=== PATIENT | male | born 1985 | race Caucasian/White ===

== ENCOUNTER 2023-06-20 17:18 | Emergency (ER) | payer BC, SELFPAY ==
[2023-06-20 17:22] VITALS: BP 132/86; PULSE 114; RESP 22; TEMP 38.5; O2SAT 95; BMI 50.8
--- NOTE | 2023-06-20 17:32 | ED_ITS ---
HPI - Dizziness General Chief Complaint: Dizziness Stated Complaint: lightheaded Time Seen by Provider: 06/20/23 17:28 Source: patient Mode of arrival: walk-in Limitations: no limitations History of Present Illness HPI Narrative: 37-year-old male presents to the emergency department for dizziness and abdominal pain. He's been feeling this way intermittently for the past few days but now he has pain in his right lower abdomen. He's been nauseous and has not had vomiting or diarrhea or constipation. No fever. Related Data Allergies Allergy/AdvReac Type Severity Reaction Status Date / Time No Known Drug Allergies Allergy Verified 06/20/23 17:25 Review of Systems ROS Narrative A ten point review of systems is negative except as noted above. PFSH PFSH Social History Smoking status: Never smoker Exam Narrative Exam Narrative: Nurses note and vital signs reviewed and patient is not hypoxic. General: The patient appears uncomfortable Skin: Warm, dry, no pallor noted. There is no rash noted. Head: Normocephalic, atraumatic Eye: Normal conjunctiva, no drainage Ears, Nose, Mouth, and Throat: oral mucosa is moist. Nares patent. Cardiovascular: Regular Rate and Rhythm Respiratory: Patient is in no distress, no accessory muscle use, lungs are clear to auscultation, no wheezing, rales or rhonchi Back: non-tender GI: . We obese. He seems to have some tenderness in the lower abdomen Musculoskeletal: The patient has no evidence of calf tenderness, no pitting edema, symmetrical pulses noted bilaterally Neurological: A&O, normal speech Psychiatric: Cooperative Constitutional Vital Signs, click to edit/add: Last Vital Signs Temp 101.3 F H 06/20/23 17:22 Pulse 114 H 06/20/23 17:22 Resp 22 06/20/23 17:22 BP 132/86 06/20/23 17:22 Pulse Ox 95 06/20/23 17:22 O2 Del Method Room Air 06/20/23 17:22 Course Vital Signs Vital signs: Vital Signs Temperature 101.3 F H 06/20/23 17:22 Pulse Rate 114 H 06/20/23 17:22 Respiratory Rate 22 06/20/23 17:22 Blood Pressure 132/86 06/20/23 17:22 Pulse Oximetry 95 06/20/23 17:22 Oxygen Delivery Method Room Air 06/20/23 17:22 Temperature 101.3 F H 06/20/23 17:22 Pulse Rate 114 H 06/20/23 17:22 Respiratory Rate 22 06/20/23 17:22 Blood Pressure 132/86 06/20/23 17:22 Pulse Oximetry 95 06/20/23 17:22 Oxygen Delivery Method Room Air 06/20/23 17:22 MDM - Dizziness MDM Narrative Medical decision making narrative: tests are ordered. Urinalysis and CAT scan are pending and the patient is signed out to Dr. Heath. Lab Data Labs: Lab Results 06/20/23 Range/Units 17:30 WBC 7.1 (4.0-11.0) 10^3/uL RBC 5.47 (4.70-6.10) 10^6/uL Hgb 15.2 (14.0-18.0) g/dL Hct 46.4 (42.0-54.0) % MCV 84.8 (80.0-94.0) fL MCH 27.8 (25.9-34.0) pg MCHC 32.8 (29.9-35.2) g/dL RDW 14.6 (11.0-15.0) % Plt Count 153 (150-450) 10^3/uL MPV 9.8 (9.5-13.5) fL Neut % (Auto) 47.9 (43.0-75.0) % Lymph % (Auto) 43.2 (20.5-60.0) % [place] % (Auto) 7.9 (1.7-12.0) % Eos % (Auto) 0.3 L (0.9-7.0) % Baso % (Auto) 0.1 L (0.2-2.0) % Neut # (Auto) 3.4 (1.4-6.5) 10^3/uL Lymph # (Auto) 3.1 (1.2-3.8) 10^3/uL [place] # (Auto) 0.6 (0.3-0.8) 10^3/uL Eos # (Auto) 0.0 (0.0-0.7) 10^3/uL Baso # (Auto) 0.0 (0.0-0.1) 10^3/uL Abs Immat Gran (auto) 0.04 H (0.00-0.03) 10^3/uL Imm/Tot Granulo (auto) 0.6 H (0.0-0.5) % Sodium 136 (136-145) mmol/L Potassium 4.1 (3.5-5.1) mmol/L Chloride 99 (98-107) mmol/L Carbon Dioxide 27.5 (21.0-32.0) mmol/L Anion Gap 13.6 BUN 10.0 (7.0-18.0) mg/dL Creatinine 0.99 (0.70-1.30) mg/dL Est GFR ( Amer) >60 (>=60) Est GFR (Non-Af Amer) >60 (>=60) BUN/Creatinine Ratio 10.1 Glucose 112 H (74-106) mg/dL Calcium 9.1 (8.5-10.1) mg/dL Discharge Plan Discharge Patient Disposition: Still a Patient
[2023-06-20 17:37] LABS: Basophils Percent Auto 0.1 % (0.2-2.0); Eosinophils Percent Auto 0.3 % (0.9-7.0); Hematocrit 46.4 % (42.0-54.0); Hemoglobin 15.2 g/dL (14.0-18.0); Immature Granulocytes Abs Auto 0.04 10^3/uL (0.00-0.03); Immature Granulocytes Pct Auto 0.6 % (0.0-0.5); Lymphocytes Absolute Auto 3.1 10^3/uL (1.2-3.8); Lymphocytes Percent Auto 43.2 % (20.5-60.0); Mean Corpuscular HGB Conc 32.8 g/dL (29.9-35.2); Mean Corpuscular Hemoglobin 27.8 pg (25.9-34.0); Mean Corpuscular Volume 84.8 fL (80.0-94.0); Mean Platelet Volume 9.8 fL (9.5-13.5); Monocytes Absolute Auto 0.6 10^3/uL (0.3-0.8); Monocytes Percent Auto 7.9 % (1.7-12.0); Neutrophils Absolute Auto 3.4 10^3/uL (1.4-6.5); Neutrophils Percent Auto 47.9 % (43.0-75.0); Platelet Count 153 10^3/uL (150-450); Red Blood Count 5.47 10^6/uL (4.70-6.10); Red Cell Distribution Width 14.6 % (11.0-15.0); White Blood Count 7.1 10^3/uL (4.0-11.0)
[2023-06-20 17:50] LABS: Anion Gap 13.6; BUN Creatinine Ratio 10.1; Calcium 9.1 mg/dL (8.5-10.1); Carbon Dioxide 27.5 mmol/L (21.0-32.0); Chloride 99 mmol/L (98-107); Estimated GFR (African America >60 (>=60); Estimated GFR (Non-African Ame >60 (>=60); Glucose 112 mg/dL (74-106); Potassium 4.1 mmol/L (3.5-5.1); Sodium 136 mmol/L (136-145)
[2023-06-20] MEDS: 0.9 % SODIUM CHLORIDE 1,000 ML 1000 ML IV (17:50)
[2023-06-20] MEDS: ONDANSETRON PF 4 MG/2 ML VIAL IV (17:50)
--- NOTE | 2023-06-20 18:18 | CT_ITS ---
[address] [address] Patient Name: JORDAN YEH MRN: [id number] date: 1985 Sex: M Assigned Patient Location: ER Current Patient Location: Accession/Order Number: [id number] Exam Date: 06/20/2023 18:35 Report Date: 06/20/2023 19:41 At the request of: MILADIS HARVEY Procedure: CT abdomen pelvis w con EXAM: CT abdomen pelvis w con REASON FOR EXAM: Male, 37 years, low abd pain. TECHNIQUE: Computed tomography of the abdomen and pelvis is performed in the axial projection from the lung bases to the pubic symphysis. Sagittal and coronal reconstructed images are performed. Dose reduction techniques were achieved by using automated exposure control and/or adjustment of mA and/or KVP according to patient size and/or use of iterative reconstruction technique. A total of 98 mL Omnipaque 300 IV contrast was given. Study was performed without oral contrast. COMPARISON: None. FINDINGS: Lung bases: The lung bases are clear. There is no pleural effusion. The visualized portions of the heart are unremarkable. Liver: There is diffuse decreased attenuation throughout the liver consistent with steatosis. The liver is enlarged. Gallbladder: The gallbladder contents appear slightly heterogeneous. Question noncalcified gallstones. The gallbladder wall is not thickened. Spleen: The spleen is enlarged, measuring 20 cm from anterior to posterior. Pancreas: The pancreas is normal. Adrenal glands: The adrenal glands are normal bilaterally. Right kidney: The kidney is normal in size. There is no renal calculus or hydronephrosis. Left kidney: The kidney is normal in size. There is no renal calculus or hydronephrosis. Stomach: The stomach is normal. Small bowel: The small bowel is normal. Large bowel: The colon is normal. Appendix: The appendix is visualized, and is normal. Aorta: The aorta is normal. IVC: The IVC is normal. Retroperitoneum: Normal retroperitoneum. Bladder: The bladder is nearly empty at the time of scanning. Pelvic organs: Normal prostate gland. Abdominal wall: Normal abdominal wall. Osseous structures: Degenerative changes are seen in the visualized spine. CT/CT abdomen pelvis w con IMPRESSION: Hepatosplenomegaly. Hepatic steatosis. Subtle heterogeneity of the gallbladder contents, question noncalcified gallstones. This can be further characterized by right upper quadrant ultrasound, as clinically indicated. No bowel obstruction or acute renal pathology. Electronically authenticated by: LA NENA MATTHEWS Date: 06/20/2023 19:41
[2023-06-20 18:57] LABS: Bilirubin Urine NEGATIVE (NEGATIVE); Blood Urine TRACE-I (NEGATIVE); Clarity Urine CLEAR (CLEAR); Color Urine YELLOW (YELLOW); Glucose Urine UA NEGATIVE (NEGATIVE); Ketones Urine NEGATIVE (NEGATIVE); Leukocyte Esterase Urine NEGATIVE (NEGATIVE); Nitrite Urine NEGATIVE (NEGATIVE); Protein Urine >=300 mg/dL (NEG/TRACE); Specific Gravity Urine 1.025 (1.005-1.025); Urobilinogen Urine 0.2 EU/dL (0.2-1.0)
[2023-06-20 19:08] LABS: Bacteria Urine NONE SEEN #/HPF (NONE SEEN); Cast Seen? NONE SEEN #/LPF (NONE SEEN); Crystals Seen? None Seen #/HPF (None Seen); Mucus Urine NONE SEEN (NONE SEEN); Squamous Epithelial Cell Urine MODERATE #/LPF (NONE/RARE); WBC Urine 0-2 #/HPF (NONE SEEN)
[2023-06-20 19:30] VITALS: BP 112/71; PULSE 94; TEMP 37.9; O2SAT 95
[2023-06-20 20:32] VITALS: BP 131/77; PULSE 95; TEMP 37.6; O2SAT 95
== END 2023-06-20 20:34 | disposition home or self-care (01) ==
PROVIDERS: Emergency Medicine; Emergency Provider Internal Medicine
DX: R10.9 Unspecified abdominal pain (principal); K80.20 Calculus of gallbladder without cholecystitis without obstruction; R42 Dizziness and giddiness
CPT/HCPCS: 36415; 74177; 80048; 81001; 85025; 96361; 96374; 99285; Q9967

== ENCOUNTER 2025-01-06 21:13 | Emergency (ER) | payer BC, SELFPAY ==
[2025-01-06 21:18] VITALS: BP 134/91; PULSE 92; TEMP 36.8; O2SAT 96; BMI 47.5
--- OUTSIDE RECORDS SUMMARY | 2025-01-06 21:21 | XMS_ITS | CCD ---
Author Organization [facility] Inform ion Partnership [facility] Care Team Providers Care Surveillance Dual Rate Officer Name Role Phone ELEANOR ESTRADA Admitting ELEANOR Connell Attending ELEANOR Connell Consulting ALEX Jorge TONY Admitting Unavailable LYRIC BALL Attending Unavailable MISC, DOCTOR Primary Care Unavailable CODY PARDO Consulting Alex Rios DO Primary Care Provider ANA VILLASEÑOR Attending ALEX Rios Referring Unavailable ANA VILLASEÑOR Attending ALEX Rios Referring ANA Villalobos Referring Unavailable KENAN BORREGO Attending Unavailable KENAN BORREGO Attending Unavailable Medications Current Medications Medication Drug Class(es) Dates Sig (Normalized) Sig (Original) [id number] 200 actuat albuterol 0.09 mg/actuat metered dose inhaler (2 sources) beta2-Adrenergic Agonist Start: 10-06-2023 End: 10-05-2024 take 2 puff(s) by inhalation every four hours for wheezing albuterol HFA 90 mcg/act inhaler Indications: Bronchitis Inhale 2 puffs every 4 (four) hours if needed for wheezing or shortness of breath 18 g 3 10/06/2023 10/05/2024 Active cefdinir 300 mg oral capsule (2 sources) Cephalosporin Antibacterial Start: 10-01-2023 End: 10-06-2023 take 1 capsule by mouth in the morning cefdinir (Omnicef) 300 MG capsule Indications: Bronchitis Take 1 capsule (300 mg) by mouth in the morning and 1 capsule (300 mg) before bedtime. Do all this for 10 days. 20 capsule 0 10/01/2023 10/06/2023 Discontinued (Therapy completed) 12 hr dextromethorphan hydrobromide 60 mg / guaiFENesin 1200 mg extended release oral tablet (2 sources) Uncompetitive U-rmkvqt-M-aspartat e Receptor Antagonist, Sigma-1 Agonist Start: 09-27-2023 dextromethorphan- guaiFENesin (MUCINEX DM MAX STRENGTH) 60-1200 MG 12 hr tablet Indications: Bronchitis Take 1 tablet by mouth every 12 (twelve) hours if needed (BID) 20 tablet 0 09/27/2023 Active levoFLOXacin 500 mg oral tablet (2 sources) Quinolone Antimicrobial Start: 10-06-2023 End: 10-16-2023 take 1 tablet by mouth in the morning levoFLOXacin (Levaquin) 500 MG tablet Indications: Bronchitis Take 1 tablet (500 mg) by mouth in the morning for 10 days. 10 tablet 0 10/06/2023 10/16/2023 Active predniSONE 20 mg oral tablet (2 sources) Start: 09-27-2023 End: 10-06-2023 predniSONE (Deltasone) 20 MG tablet Indications: Bronchitis Take 3 tablets for 2 days, then take 2 tablets for 2 days, then take 1 tablet for 2 days by mouth 12 tablet 0 09/27/2023 10/06/2023 Discontinued (Therapy completed) Problems Active Problems Problem Classification Problem Date Documented Da te Episodic/Chronic Acute bronchitis (1 source) Acute bronchitis, unspecified; Translations: [ACUTE BRONCHITIS UNSPECIFIED] Onset: 12-08-2018 Episodic Chronic obstructive pulmonary disease and bronchiectasis (2 sources) Bronchitis; Translations: [Bronchitis, not specified as acute or chronic] 10-06-2023 Episodic Other and ill-defined heart disease (2 sources) Left ventricular hypertrophy; Translations: [Cardiomegaly] Onset: 06-22-2023 06-22-2023 Chronic Other lower respiratory disease (3 sources) Cough; Translations: [COUGH] Onset: 12-06-2018 Episodic Other nutritional; endocrine; and metabolic disorders (2 sources) Morbid obesity; Translations: [Morbid (severe) obesity due to excess calories] Onset: 06-22-2023 06-22-2023 Chronic Other upper respiratory infections (2 sources) Frontal sinusitis; Translations: [Chronic frontal sinusitis] Onset: 06-22-2023 06-22-2023 Chronic Past or Other Problems Problem Classification Problem Date Documented Da te Episodic/Chronic Other connective tissue disease (4 sources) Cramp and spasm; Translations: [CRAMP AND SPASM] Onset: 05-25-2018 Episodic Other injuries and conditions due to external causes (2 sources) Muscle strain; Translations: [Other injury of unspecified body region, initial encounter] Onset: 06-22-2023 06-22-2023 Episodic Results Test Name Value Interpretation Reference Range Facility XR CHEST 2 VIEWSon 4 XR CHEST 2 VIEWS CLINICAL HISTORY: shortness of breath COMPARISON: FINDINGS: The cardiomediastinal silhouette is unremarkable. The lungs are free of infiltrates effusions or consolidations. The bones and soft tissues are within normal limits. IMPRESSION: There are no acute cardiopulmonary changes. ELECTRONICALLY SIGNED BY: Nick Graves MD Normal Not Available COVID-19 Antigenon 1 COVID-19 Antigen Healthcare Worker?: N [place] Reference [place] Reference Negative [place] Blank COVID19 Pos Results Positive results will only be called to COVID19 Det Results Providers for the following groups of patients: COVID19 Pos Results Pre-Surgical Testing, Emergency Room, and Inpatients. [place] Blank SARS-CoV+SARS-CoV-2 (COVID-19) Ag [Presence] in Respiratory specimen by Rapid immunoassay Positive for SARS Antigen by VALERIO [place] Disclaimer The [place] SARS Antigen VALERIO does not differentiate [place] Disclaimer between SARS-CoV and SARS-CoV-2. COVID19 Blank Space [place] Disclaimer This test was developed and its performance [place] Disclaimer characteristic determined by [employer] and [place] Disclaimer validated at [facility]. This [place] Disclaimer test has not been FDA cleared or approved. This [place] Disclaimer test has been authorized by FDA under an Emergency Use [place] Disclaimer Authorization (EUA). This test has been validated [place] Disclaimer in accordance with the FDA's Guidance Document (Policy [place] Disclaimer for Diagnostics Testing in Laboratories Certified to [place] Disclaimer Perform High Complexity Testing under CLIA prior to [place] Disclaimer Emergency Use Authorization for Coronavirus [place] Disclaimer is during the Public Health Emergency) [place] Disclaimer issued on November 23, 2019. This test is only authorized [place] Disclaimer for the duration of time the declaration that [place] Disclaimer circumstances exist justifying the authorization of [place] Disclaimer the emergency use of in vitro diagnostic tests for [place] Disclaimer detection of SARS-CoV-2 virus and/or diagnosis of [place] Disclaimer COVID-19 infection under section 564(b)(1) of the [place] Disclaimer Act, 21 U.S.C. 360bbb-3(b)(1), unless the [place] Disclaimer authorization is terminated or revoked sooner. PERFORMED BY: [place] [address] PATHOLOGIST VIDEO GAME ENGINEER KEN CALLOWAY M.D. Normal [facility] Comment on above: Performed By: #### COVID-19 SALOMÓN, SALOMÓN POS #### [facility] [address] [place] [address] [place] Ag Positiveon 07-07-20 21 [place] Ag Positive Positive Critically abnormal Negative [facility] Comment on above: Result Comment: This is a duplicate Faby a SARS Antigen (VALERIO) result to be used for statistical tracking purpose only. PERFORMED BY: [place] [address] PATHOLOGIST VIDEO GAME ENGINEER KEN CALLOWAY M.D. Performed By: #### C OVID-19 SALOMÓN, SOFIAPOS #### [facility] [address] [place] [address] COVID-19 Lab Corpon 10-14-19 21 SARS-CoV-2 (COVID-19) Ab IA Ql Not detected Normal Not Detected [facility] Comment on above: Order Comment: Reason for Exam Headache Healthcare Worker?: N Result Comment: This nucleic acid amplification test was developed and its performance characteristics determined by [employer]. Nucleic acid amplification tests include RT- PCR and TMA. This test has not been FDA cleared or approved. This test has been authorized by FDA under an Emergency Use Authorization (EUA). This test is only authorized for the duration of time the declaration that circumstances exist justifying the authorization of the emergency use of in vitro diagnostic tests for detection of SARS-CoV-2 virus and/or diagnosis of COVID-19 infection under section 564(b)(1) of the Act, 21 U.S.C. 360bbb-3(b) (1), unless the authorization is terminated or revoked sooner. When diagnostic testing is negative, the possibility of a false negative result should be considered in the context of a patient's recent exposures and the presence of clinical signs and symptoms consistent with COVID-19. An individual without symptoms of COVID-19 and who is not shedding SARS-CoV-2 virus would expect to have a negative (not detected) result in this assay. Performed at: [address] [id number] [employer]: Chris Mchugh PhD, Phone: [phone] PERFORMED BY: [place] [address] PATHOLOGIST VIDEO GAME ENGINEER KEN CALLOWAY M.D. Performed By: #### C ORONAVIRUS #### [facility] , CPKon 05-25-2018 CK enzyme act/vol 461 U/L Critically high 55-170 [facility] Comment on above: Result Comment: Test Repeated. Critical Value Verified Performed By: #### C K #### [facility] [address], [place] [address] Guillaume De Souza PROF CHEM 8 (BAS METB)on Anion gap molar conc 16.1 mmol/L Normal [facility] Comment on above: Performed By: #### BMP #### [facility] [address], [place] [address] Guillaume De Souza Calcium mass conc 9.8 mg/dL Normal 8.4-10.2 [facility] Comment on above: Performed By: #### BMP #### [facility] [address] [place] [address] Guillaume Nolvia Chloride molar conc 103 mmol/L Normal 98-107 [facility] Comment on above: Performed By: #### BMP #### [facility] [address] [address] Guillaume Nolvia CO2 molar conc 26.6 mmol/L Normal 22.0-30.0 [facility] Comment on above: Performed By: #### BMP #### [facility] [address] [address] Guillaume Nolvia Creatinine mass conc 1.40 mg/dL Critically high 0.66-1.25 [facility] Comment on above: Performed By: #### BMP #### [facility] [address] [address] Guillaume Nolvia EGFR-AF SENEGALESE >60 Normal >=60 [facility] Comment on above: Performed By: #### BMP #### [facility] [address] [address] Guillaume Nolvia EGFR-NON AF SENEGALESE 59 mL/min/1.73m2 Critically low >=60 [facility] Comment on above: Performed By: #### BMP #### [facility] [address] [address] Guillaume Nolvia Glucose mass conc 136 mg/dL Critically high 74-106 [facility] Comment on above: Performed By: #### BMP #### [facility] [address] [address] Guillaume Nolvia Potassium molar conc 3.7 mmol/L Normal 3.4-5.0 [facility] Comment on above: Performed By: #### BMP #### [facility] [address] [address] Guillaume Nolvia Sodium molar conc 142 mmol/L Normal 137-145 [facility] Comment on above: Performed By: #### BMP #### [facility] [address] [address] Guillaume Nolvia Urea nitrogen mass conc 26.0 mg/dL Critically high 9.0-20.0 [facility] Comment on above: Performed By: #### BMP #### [facility] [address], [place] [address] Guillaume De Souza Urea nitrogen/Creatin ine mass ratio 18.6 mg/mg Normal [facility] Comment on above: Performed By: #### BMP #### [facility] [address], [place] [address] Guillaume De Souza Vital Signs Date Time Vital Sign Value Performing Clinician Faci lity 10-06-2023 10:41-0500 Body height 185.4 cm Ana Villaseñor PA Work Phone: [facility] 10-06-2023 10:41-0500 Body mass index (BMI) [Ratio] 48.74 kg/m2 Ana Villaseñor PA Work Phone: [facility] 10-06-2023 10:41-0500 Body temperature 96.21 [degF] Ana Villaseñor PA Work Phone: [facility] 10-06-2023 10:41-0500 Body weight 167.56 kg Ana Villaseñor PA Work Phone: [facility] 10-06-2023 10:41-0500 Diastolic blood pressure 86 mm[Hg] Ana Villaseñor PA Work Phone: [facility] 10-06-2023 10:41-0500 Heart rate 76 /min Ana Villaseñor PA Work Phone: [facility] 10-06-2023 10:41-0500 SaO2% (BldA) [Mass fraction] 98 % Ana Villaseñor PA Work Phone: [facility] 10-06-2023 10:41-0500 Systolic blood pressure 132 mm[Hg] Ana Villaseñor PA Work Phone: [facility] Healthcare Encounters Encounter Date Encounter Type Care Provider Facility Start: 10-06-2023 End: 10-07-2023 ambulatory ANA VILLASEÑOR Not Available Start: 10-06-2023 End: 10-06-2023 Office outpatient visit 15 minutes Ana Villaseñor PA Work Phone: [facility] [phone] Comment on above: Bronchitis (Primary Dx) Start: 09-27-2023 End: 09-27-2023 ambulatory ANA Dobbs KASI Not Available Start: 08-12-2023 End: 08-12-2023 ambulatory KENAN BORREGO Not Available Start: 08-11-2023 End: 08-11-2023 ambulatory KENAN BORREGO Not Available Start: 12-06-2018 End: 12-06-2018 Patient encounter procedure LYRIC BALL Facility:[facility] Start: 05-25-2018 End: 05-25-2018 Patient encounter procedure ELEANOR ESTRADA Facility:[facility] Plan of Treatment Date Care Activity Detail Author Start: 10-06-2023 End: 10-06-2024 XR Chest 2 Views [facility] [employer] Work Phone: Comment on above: Expected: 10/06/2023 , Expires: 10/06/2024 Start: 04-23-2023 Influenza vaccination Influenz a Vaccine (#1) [facility] Healthcare Payers Date Payer Category Payer Unknown BCBS BCBS xxxxxx [id number] 2017-Present [phone] [address] [place] [address] [id number] 1985 Unknown [id number] 1985 Unknown [id number] 1985 Unknown [id number] 1985 Unknown [id number] 1985 Unknown [id number] 1985 Unknown [id number] 1985 Unknown [id number] 1959 Unknown [id number] Social History Date Type Detail Facility Start: 06-23-2023 Tobacco smoking status NHIS Never sm oked tobacco [facility] Start: 06-23-2023 Tobacco use and exposure Smoke less tobacco non-user [facility] Start: 10-06-2023 Alcohol intake Ex-drinker (finding) [facility] Start: 06-23-2023 End: 09-27-2023 [facility] Start: 06-23-2023 End: 09-27-2023 Humiliation, Afraid, Rape, and Kick questionnaire [HARK] [facility] Within the last year , have you been afraid of your partner or ex-partner? No [facility] Are you now , , , , never or living with a partner? [facility] How often to you hav e a drink containing alcohol? Never [facility] How many standard dr inks containing alcohol do you have on a typical day? Patient does not drink [facility] Do you feel stress - tense, restless, nervous, or anxious, or unable to sleep at night because your mind is troubled all the time - these days [OSQ] Very much [facility] (I/We) worried wheth er (my/our) food would run out before (I/we) got money to buy more. Never true [facility] Start: 1985 Sex Assigned At Not on file [facility] History of Present illness Narrative 10-06-2023 ALEXSANDRA Cabezas - 10/06/2023 10:30 AM EST Note Date & Type Note Facility 10-06-2023 History of Presen t illness Narrative Subjective Patient ID: Fady Billy is a 37 y.o. male who presents for Follow-up (Patient presents with shortness of breath. He states today is a better day, but yesterday was really bad with being short of breath. He mentions of wanting to get an xray to check his lungs. He states it's been going on for a week n half almost. ). URI This is a new problem. Episode onset: >10 days ago. The problem has been gradually worsening. There has been no fever. Associated symptoms include congestion, coughing, diarrhea (side effect of abx), headaches and wheezing. Pertinent negatives include no ear pain, nausea, plugged ear sensation, rash, sinus pain, sore throat or vomiting. Treatments tried: cefdinir, mucinex, and prednisone. The treatment provided mild relief. Review of Systems Constitutional: Positive for fatigue. Negative for chills and fever. HENT: Positive for congestion and postnasal drip. Negative for ear pain, sinus pain and sore throat. Respiratory: Positive for cough, chest tightness and wheezing. Gastrointestinal: Positive for diarrhea (side effect of abx). Negative for nausea and vomiting. Musculoskeletal: Negative for myalgias. Skin: Negative for rash. Neurological: Positive for headaches. All other systems reviewed and are negative. Objective Visit Vitals BP 132/86 Pulse 76 Temp 96.2 F (Temporal) Ht 6' 1 Wt 369 lb 6.4 oz SpO2 98% BMI 48.74 kg/m Smoking Status Never BSA 2.94 m Physical Exam Constitutional: General: He is not in acute distress. Appearance: He is ill-appearing (and coughing). HENT: Head: Normocephalic and atraumatic. Right Ear: Tympanic membrane and ear canal normal. Left Ear: Tympanic membrane and ear canal normal. Nose: Congestion present. Right Sinus: No maxillary sinus tenderness or frontal sinus tenderness. Left Sinus: No maxillary sinus tenderness or frontal sinus tenderness. Mouth/Throat: Mouth: Mucous membranes are moist. Pharynx: Pharyngeal swelling and posterior oropharyngeal erythema present. No oropharyngeal exudate. Cardiovascular: Rate and Rhythm: Normal rate and regular rhythm. Pulses: Normal pulses. Heart sounds: No murmur heard. No friction rub. No gallop. Pulmonary: Effort: No respiratory distress. Breath sounds: Wheezing (mild to moderate) present. Lymphadenopathy: Cervical: No cervical adenopathy. Skin: General: Skin is warm and dry. Neurological: General: No focal deficit present. Mental Status: He is alert. Psychiatric: Mood and Affect: Mood normal. Behavior: Behavior normal. Judgment: Judgment normal. Assessment/Plan Diagnoses and all orders for this visit: Bronchitis (Primary) - XR chest 2 views; Future - levoFLOXacin (Levaquin) 500 MG tablet; Take 1 tablet (500 mg) by mouth in the morning for 10 days. - albuterol HFA 90 mcg/act inhaler; Inhale 2 puffs every 4 (four) hours if needed for wheezing or shortness of breath documented in this encounter [facility] Healthcare Instructions 10-06-2023 Patient Instructions Note Date & Type Note Facility 10-06-2023 Instructions ALEXSANDRA Cabezas - 10/06/2023 10:30 AM EST Will call with result. Treatment options discussed; take medications as directed. Patient advised to increase fluid intake, use guaifenesin, and humidify the air. May use Tylenol as needed. F/u if not improving. To ER or Urgent Care if symptoms worsen or fever >101.5. Report to ER for any breathing difficulties. All questions answered. Patient verbalized understanding. Call the office with any further questions or concerns. documented in this encounter [facility] Healthcare Evaluation note Note Date & Type Note Facility Evaluation note Diagnosis Bronchitis- Primary Bronchitis, not specified as acute or chronic documented in this encounter [facility] Healthcare Summary Purpose Family History No Family History Records FoundNo Family History Records FoundNo Family History Records Found Advance Directives No Advanced Directives Records FoundNo Advanced Directives Records FoundNo Advanced Directives Records Found Additional Source Comments (unrecognized sect ion and content) No Status Records FoundNo Status Records FoundNo Status Records Found INFORMATION SOURCE (unrecogn ized section and content) DATE CREATED AUTHOR 12/08/2018 [facility] DATE CREATED AUTHOR AUTHOR'S ORGANIZ ATION 08/09/2021 [facility] DATE CREATED AUTHOR AUTHOR'S ORGANIZ ATION 10/11/2023 [facility] EPIC Reason for Visit (unrecogniz ed section and content) Reason Comments Follow-up Patient presents wit h shortness of breath. He states today is a better day, but yesterday was really bad with being short of breath. He mentions of wanting to get an xray to check his lungs. He states it's been going on for a week n half almost. Care Teams (unrecognized sec tion and content) Surveillance Dual Rate Officer Relationship Specialty Start Date End Date Alex Robledo DO [address] [place] [address] PCP - General Family Medicine 12/29/22 FOR RECORDS PERTAINING TO PATIENTS WHO ARE OR HAVE BEEN ENROLLED IN A CHEMICAL DEPENDENCY/SUBSTANCEABUSE PROGRAM, SOME INFORMATION MAY BE OMITTED. This clinical summary was aggregated from multiple sources. Caution should be exercised in using it in the provision of clinical care. This summary normalizes information from multiple sources, and as a consequence, information in this document may materially change the coding, format and clinical context of patient data. In addition, data may be omitted in some cases. CLINICAL DECISIONS SHOULD BE BASED ON THE PRIMARY CLINICAL RECORDS. [facility]. provides no warranty or guarantee of the accuracy or completeness of information in this document.
--- NOTE | 2025-01-06 21:29 | PC.NURSE ---
Patient reports pushing a truck and felt a pop to right calf. Pain to right calf area, no bulge or knot felt in leg, no redness present. Skin to right leg and foot pink and warm and pulses present. Right leg elevated on pillow and ice pack applied.
--- NOTE | 2025-01-06 21:31 | ED_ITS ---
HPI HPI - Extremity Injury (Lower) General Chief Complaint: Extremity Injury, Lower Stated Complaint: LE INJURY Time Seen by Provider: 01/06/25 21:26 Source: patient Mode of arrival: walk-in Limitations: no limitations History of Present Illness HPI Narrative: pushing a car into a trailer about 1.5 hours ago and experienced acute pain of his right calf muscle. Hurts to bear weight. No numbness or weakness. Denies any additional injury Related Data Home Medications ?Medication ?Instructions ?Recorded ?Confirmed No Known Home Medications 01/06/2512/21 Allergies Allergy/AdvReac Type Severity Reaction Status Date / Time No Known Drug Allergies Allergy Verified 01/06/25 21:24 Review of Systems ROS Status of ROS 10 or more systems reviewed and unremark able except as noted in history and below [facility] Social History Smoking status: Never smoker Little interest or pleasure in doing things: not at all Feeling down, depressed, or hopeless: not at all Exam Constitutional Vital Signs, click to edit/add: Last Vital Signs Temp 98.3 F 01/06/25 21:18 Pulse 92 H 01/06/25 21:18 Resp 16 01/06/25 21:18 BP 134/91 01/06/25 21:18 Pulse Ox 96 01/06/25 21:18 O2 Del Method Room Air 01/06/25 21:18 Common normals: no apparent distress, average body habitus, oriented x3, no limitations, healthy appearing, alert and well nourished [facility] Common normals: normocephalic and head/scalp atraumatic Respiratory Common normals: normal respiratory effort, no retractions and no use of accessory muscles Cardio Common normals: regular rate and regular rhythm Extremity Other: right calf muscle tender. No definite deformity. No discoloration Neuro Common normals: oriented x3, CN's II-XII intact bilaterally, moves all extremities and no focal motor deficits Psych Appearance: grossly normal Course Vital Signs Vital signs: Vital Signs Temperature 98.3 F 01/06/25 21:18 Pulse Rate 92 H 01/06/25 21:18 Respiratory Rate 16 01/06/25 21:18 Blood Pressure 134/91 01/06/25 21:18 Pulse Oximetry 96 01/06/25 21:18 Oxygen Delivery Method Room Air 01/06/25 21:18 Temperature 98.3 F 01/06/25 21:18 Pulse Rate 92 H 01/06/25 21:18 Respiratory Rate 16 01/06/25 21:18 Blood Pressure 134/91 01/06/25 21:18 Pulse Oximetry 96 01/06/25 21:18 Oxygen Delivery Method Room Air 01/06/25 21:18 MDM - Extremity Injury (Lower) MDM Narrative Medical decision making narrative: presents clinically with acute partial tear of his right gastrocnemius. N/V intact. Achilles nontender. xray of tibia ordered xray unremarkable. Discussed with propulsion generator repairer orthopedics Dr Zafar and he can see him in the office wednesday. Patient provided with cam boot. Discharge Plan Discharge Chief Complaint: Extremity Injury, Lower Clinical Impression: Gastrocnemius muscle tear Patient Disposition: Home, Self-Care Prescriptions / Home Meds: No Action No Known Home Medications Print Language: Kittitian Instructions: Muscle Strain (ED) Additional Instructions: follow up with orthopedics Dr Zafar In [place] . Referrals: Physician,Non-Staff, [Primary Care Provider] - 1 week
== END 2025-01-06 23:19 | disposition home or self-care (01) ==
PROVIDERS: Emergency Provider Internal Medicine
DX: S86.111A Strain of other muscle(s) and tendon(s) of posterior muscle group at lower leg level, right leg, initial encounter (principal); X50.9XXA Other and unspecified overexertion or strenuous movements or postures, initial encounter
CPT/HCPCS: 73590; 99283

== ENCOUNTER 2025-01-10 20:34 | Emergency (ER) | payer BC, SELFPAY ==
--- OUTSIDE RECORDS SUMMARY | 2025-01-10 20:39 | XMS_ITS | CCD ---
Author Organization [facility] Inform ion Partnership [facility] Care Team Providers Care Farm Crew Leader Name Role Phone ELEANOR ESTRADA Admitting ELEANOR [...] Drug Class(es) Dates Sig (Normalized) Sig (Original) [id number] 200 actuat albuterol 0.09 mg/actuat metered dose [...] extended release oral tablet (2 sources) Uncompetitive N-pamzcl-Z-aspartat e Receptor Antagonist, Sigma-1 Agonist Start: 09-27-2023 [...] its performance [place] Disclaimer characteristic determined by [employer] and [place] Disclaimer validated at [facility]. This Salom[place] Disclaimer test has not been [...] the duration of time the declaration that [place] Disclaimer circumstances exist justifying the authorization of [place] Disclaimer the emergency use of in vitro diagnostic tests for [place] Disclaimer detection of SARS-CoV-2 virus and/or diagnosis of [place] Disclaimer COVID-19 infection under section 564(b)(1) of the [place] Disclaimer Act, 21 U.S.C. 360bbb-3(b)(1), unless the Salomón Disclaimer authorization is terminated or revoked sooner. PERFORMED BY: [place] [address] PATHOLOGIST WRAPPER OPERATOR KEN CALLOWAY M.D. Normal [facility] Comment on above: Performed By: #### COVID-19 SALOMÓN, SALOMÓN POS #### [facility] [address] [place] [address] Salomón Ag Positiveon 07-07-20 21 [place] Ag Positive Positive Critically abnormal Negative [facility] Comment on above: Result Comment: This is a duplicate Faby a SARS Antigen (VALERIO) result to be used for statistical tracking purpose only. PERFORMED BY: [place] [address] PATHOLOGIST WRAPPER OPERATOR KEN CALLOWAY M.D. Performed By: #### C OVID-19 SALOMÓN, SOFIAPOS #### [facility] [address] [place] [address] COVID-19 Lab Corpon 10-14-19 21 SARS-CoV-2 (COVID-19) Ab IA Ql Not detected Normal Not Detected [facility] Comment on above: Order Comment: Reason for Exam Headache Healthcare Worker?: N Result Comment: This nucleic acid amplification test was developed and its performance characteristics determined by [employer]. Nucleic acid amplification tests include RT- PCR [...] detected) result in this assay. Performed at: [address] [id number] Audit Officer: Chris Mchugh PhD, Phone: [phone] PERFORMED BY: [place] [address] PATHOLOGIST WRAPPER OPERATOR KEN CALLOWAY M.D. Performed By: #### C ORONAVIRUS #### [facility] , CPKon 05-25-2018 CK enzyme act/vol 461 U/L Critically high 55-170 [facility] Comment on above: Result Comment: Test Repeated. Critical Value Verified Performed By: #### C K #### [facility] [address] [place], [place] [address] Guillaume eD Souza PROF CHEM 8 (BAS METB)on Anion gap molar conc 16.1 mmol/L Normal [facility] Comment on above: Performed By: #### BMP #### [facility] [address] [place], [place] [address] Guillaume De Souza Calcium mass conc 9.8 mg/dL Normal 8.4-10.2 [facility] Comment on above: Performed By: #### BMP #### [facility] [address] [place] [address] Guillaume Nolvia Chloride molar conc 103 mmol/L Normal 98-107 [facility] Comment on above: Performed By: #### BMP #### [facility] [address] [place] [address] Guillaume Nolvia CO2 molar conc 26.6 mmol/L Normal 22.0-30.[address] [facility] Comment on above: Performed By: #### BMP #### [facility] [address] [place] [address] Guillaume Nolvia Creatinine mass conc 1.40 mg/dL Critically high 0.66-1.25 [facility] Comment on above: Performed By: #### BMP #### [facility] [address] [place] [address] Guillaume Nolvia EGFR-AF TURKISH >60 Normal >=60 [facility] Comment on above: Performed By: #### BMP #### [facility] [address] [place] [address] Guillaume Nolvia EGFR-NON AF TURKISH 59 mL/min/1.73m2 Critically low >=60 [facility] Comment on above: Performed By: #### BMP #### [facility] [address] [place] [address] Guillaume Nolvia Glucose mass conc 136 mg/dL Critically high 74-106 [facility] Comment on above: Performed By: #### BMP #### [facility] [address] [place] [address] Guillaume Nolvia Potassium molar conc 3.7 mmol/L Normal 3.4-5.0 [facility] Comment on above: Performed By: #### BMP #### [facility] [address] [place] [address] Guillaume Nolvia Sodium molar conc 142 mmol/L Normal 137-145 [facility] Comment on above: Performed By: #### BMP #### [facility] [address] [place] [address] Guillaume Nolvia Urea nitrogen mass conc 26.0 mg/dL Critically high 9.0-20.0 [facility] Comment on above: Performed By: #### BMP #### [facility] [address] [place], [place] [address] Guillaume De Souza Urea nitrogen/Creatin ine mass ratio 18.6 mg/mg Normal [facility] Comment on above: Performed By: #### BMP #### [facility] [address] [place], [place] [address] Guillaume De Souza Vital Signs Date Time Vital Sign Value Performing Clinician Faci lity 10-06-2023 10:41-0500 Body height 185.4 cm Ana Villaseñor PA Work Phone: [facility] 10-06-2023 10:41-0500 Body mass index (BMI) [Ratio] 48.74 kg/m2 Ana Villaseñor PA Work Phone: [facility] 10-06-2023 10:41-0500 Body temperature 96.21 [degF] Ana Villaseñor PA Work Phone: [facility] 10-06-2023 10:41-0500 Body weight 167.56 kg Ana Villaseñor PA Work Phone: [facility] 10-06-2023 10:41-0500 Diastolic blood pressure 86 mm[Hg] Ana Villaseñor PA Work Phone: [facility] 10-06-2023 10:41-0500 Heart rate 76 /min Ana Villaseñor PA Work Phone: [facility] 10-06-2023 10:41-0500 SaO2% (BldA) [Mass fraction] 98 % Ana Villaseñor PA Work Phone: [facility] 10-06-2023 10:41-0500 Systolic blood pressure 132 mm[Hg] Ana Villaseñor PA Work Phone: [facility] Healthcare Encounters Encounter Date Encounter Type Care Provider Facility Start: 10-06-2023 End: 10-07-2023 ambulatory ANA VILLASÑEOR Not Available Start: 10-06-2023 End: 10-06-2023 Office outpatient visit 15 minutes Ana Villaseñor PA Work Phone: [facility] [address] Comment on above: [...] 10-06-2023 End: 10-06-2024 XR Chest 2 Views [facility] [employer]In Social Work Phone: Comment on above: Expected: 10/06/2023 , Expires: 10/06/2024 Start: 04-23-2023 Influenza vaccination Influenz a Vaccine (#1) [facility] Healthcare Payers Date Payer Category Payer Unknown BCBS BCBS [id number] 2017-Present [phone] [address] [place] [address] [id number] 1985 Unknown [id number] 1985 Unknown [id number] 1985 Unknown [id number] 1985 Unknown [id number] 1985 Unknown [id number] 1985 Unknown [id number] 1985 Unknown [id number] 1959 Unknown [id number] Social History Date Type Detail Facility Start: [...] shortness of breath documented in this encounter [facility] Healthcare Instructions 10-06-2023 Patient Instructions Note [...] questions or concerns. documented in this encounter [facility] Healthcare Evaluation note Note Date & Type Note Facility Evaluation note Diagnosis Bronchitis- Primary Bronchitis, not specified as acute or chronic documented in this encounter [facility] Healthcare Summary Purpose Family History No [...] and content) DATE CREATED AUTHOR 12/08/2018 [facility] DATE CREATED AUTHOR AUTHOR'S ORGANIZ ATION 08/09/2021 [facility] DATE CREATED AUTHOR AUTHOR'S ORGANIZ ATION 10/11/2023 [facility] d[facility] Specialists EPIC Reason for Visit [...] Care Teams (unrecognized sec tion and content) Farm Crew Leader Relationship Specialty Start Date End Date Alex Robledo DO [address] [place] [address] PCP - General Family Medicine [...] BE BASED ON THE PRIMARY CLINICAL RECORDS. [facility] [employer] [facility]. provides no warranty or guarantee of the accuracy or completeness of information in this document.
--- OUTSIDE RECORDS SUMMARY | 2025-01-10 20:39 | XMS_ITS | Patient Health Record ---
Author Organization [facility] Address [address] [place] [address] Care Team Providers Care Brush Filler Hand Name Role Phone LIZA LANDA Primary Care Provider Octavio Alvarenga Unavailable [phone] Allergies No Known Allergies Reason For Referral Reason PLEASE PRECERT MRI R IGHT TIB FIB TO EVAL FOR GASTROCNEMIUS TEAR AT [facility] Diagnosis 1 Rupture of right gas trocnemius tendon, initial encounter (S86.811A) Referral Organization [facility] Referring Provider First Name Octavio Referring Provider Last Name Jack Referring Provider Speciality Orthopedic Surgery Referred Organization [facility] MRI CT Referred Provider Octavio Santiago Referred Address [address] [place], [place],[address], Referred Provider Specialty Orthopedic S urgery General Notes Marlyn Johns 2024 12:53:24 PM > Referral Priority Routine Social History Tobacco Use: Social History Observation Description Date Details (start date - stop date) Never Smoker NA - NA AUDIT-C (Standard) Question Answer Notes Did you have a drink containing alcohol in the p ast year? No Points 0 Interpretation Negative Tobacco Control (Standard) Question Answer Notes Tobacco use: Nonsmoker Problems Problem Type SNOMED Code ICD Code Onset Dates Problem Status W/U Status Risk Notes Problem Rupture of right gastrocnemius tendon, initial encounter (S86.811A) Active confirmed Encounters Encounter Location Date Provider Diagnosis [facility] [facility] [address] [place] [address] 01/08/2025 Octavio Santiago Rupture of right gastrocnemius tendon, initial encounter S86.811A Assessments Encounter Date Diagnosis (ICD Code) Assessment Notes Treatment Notes Treatment Clinical Notes Section Notes 01/08/2025 Rupture of right gastrocnemius tendon, initial encounter (ICD-10 - S86.811A) Right gastrocsoleus rupture 01/08/2025 Other Discussion had today with Robert regarding his right leg pain. Do suspect gastrocsoleus rupture ideally it is above the musculotendinous junction and would not recover repair. We will order MRI to further evaluate the nature of this injury. See him back upon completion of MRI Right gastrocsoleus rupture Plan Of Treatment Pending Test Test Name Order Date MRI : Lower Extremity (Other than Jt) W/ O Contrast - [id number] 01/08/2025 Insurance Providers Payer Name Payer Address Payer Phone Subscriber Number Group Number Insured Name Patient Relationship to Insured Coverage Start Date Coverage End Date [facility] [address] [place] [address] [id number] SUKHDEEP YEH Spouse - patient is the spouse of the insured 5
--- NOTE | 2025-01-10 20:51 | US_ITS ---
The [place] [id number] Patient Name: JORDAN YEH MRN: [id number] date: 1985 Sex: M Assigned Patient Location: ED.MAIN Current Patient Location: ED.MAIN Accession/Order Number: [id number] Exam Date: 01/10/2025 21:57 Report Date: 01/10/2025 21:59 At the request of: JACQUELYN KINGSLEY MD Procedure: US venous doppler LE RT Venous duplex ultrasound of the right lower extremity HISTORY: Right lower extremity pain and swelling for 4 days Normal compressibility. negative for DVT. Normal waveform. Fluid collection present in the region of the gastrocnemius muscle. This measures 1.8 x 0.8 x 3.2 cm. Correlate with muscle tear. US/US venous doppler LE RT IMPRESSION: No DVT of the right lower extremity. Impression dictated by: Aldo Mccann M.D. 01/10/2025 9:59 PM Dictation Location: [place] [address] Electronically authenticated by: [id number] Y Date: 01/10/2025 21:59
[2025-01-10 20:52] VITALS: BP 152/88; PULSE 103; TEMP 37.1; O2SAT 96; BMI 47.5
--- NOTE | 2025-01-10 20:57 | XR_ITS ---
The [address] [address] Patient Name: JORDAN YEH MRN: [id number] date: 1985 Sex: M Assigned Patient Location: ED.MAIN Current Patient Location: ED.MAIN Accession/Order Number: [id number] Exam Date: 01/10/2025 21:35 Report Date: 01/10/2025 21:37 At the request of: JACQUELYN KINGSLEY MD Procedure: XR foot RT min 3V 2 views right ankle plain film COMPARISON: None HISTORY: Acute right foot and ankle pain ACUTE FINDINGS: None DEGENERATIVE CHANGE: Posterior and inferior calcaneal spurring SOFT TISSUE FINDINGS: Unremarkable JOINT EFFUSION: None POSTOP CHANGES: None BONE MINERALIZATION: Adequate XR/XR foot RT min 3V IMPRESSION: No acute findings. 2 views right foot Adequate alignment. No acute fracture. Calcaneal spurring. Unremarkable soft tissues. IMPRESSION: Calcaneal spurring. No acute bony findings. Impression dictated by: Aldo Mccann M.D. 01/10/2025 9:37 PM Dictation Location: [facility] Electronically authenticated by: [id number] Y Date: 01/10/2025 21:37
--- NOTE | 2025-01-10 20:57 | XR_ITS ---
The [address] [address] Patient Name: JORDAN YEH MRN: [id number] date: 1985 Sex: M Assigned Patient Location: ED.MAIN Current Patient Location: ED.MAIN Accession/Order Number: [id number] Exam Date: 01/10/2025 21:35 Report Date: 01/10/2025 21:37 At the request of: JACQUELYN KINGSLEY MD Procedure: XR foot RT min 3V 2 views right ankle plain film COMPARISON: None HISTORY: Acute right foot and ankle pain ACUTE FINDINGS: None DEGENERATIVE CHANGE: Posterior and inferior calcaneal spurring SOFT TISSUE FINDINGS: Unremarkable JOINT EFFUSION: None POSTOP CHANGES: None BONE MINERALIZATION: Adequate XR/XR ankle RT 2V IMPRESSION: No acute findings. 2 views right foot Adequate alignment. No acute fracture. Calcaneal spurring. Unremarkable soft tissues. IMPRESSION: Calcaneal spurring. No acute bony findings. Impression dictated by: Aldo Mccann M.D. 01/10/2025 9:37 PM Dictation Location: [facility] Electronically authenticated by: [id number] Y Date: 01/10/2025 21:37
[2025-01-10] MEDS: ONDANSETRON 4 MG RAPDIS TABLET SL ×2 (21:09→22:31)
[2025-01-10] MEDS: OXYCODONE HCL/ACETAMINOPHEN 5MG/325MG 1 TAB PO (21:10)
--- NOTE | 2025-01-10 21:38 | ED.LOWEXI1 ---
HPI HPI - Extremity Injury (Lower) General Chief Complaint: Extremity Injury, Lower Stated Complaint: PAIN IN R ANKLE AND FOOT Time Seen by Provider: 01/10/25 20:50 Source: patient Mode of arrival: Wheelchair History of Present Illness HPI Narrative: This 39-year-old male presents for evaluation of right foot and ankle pain. The patient was pushing a car into a trailer on 01/06/2025 when he suddenly felt a popping tearing sensation in the back of his right leg. He was seen here at that time and diagnosed with a gastrocnemius tear. He was placed in a walking boot at that time and given crutches. He followed up with Dr. Zafar and is waiting to hear about approval for an MRI of the extremity for further treatment options. He states that today he has had pain in his right foot and lateral ankle area. The pain in the foot is at the distal metacarpals. Pain in the ankle is right lateral malleolus area. He denies any recent injuries. He states the pain is causing him to be nauseated. He denies any chest pain or shortness of breath. He does not smoke. He was not discharged home with any pain medication besides Tylenol and Motrin which he has been using without relief. He denies any dizziness or syncope. He has no abdominal pain or back pain. Related Data Home Medications ?Medication ?Instructions ?Recorded ?Confirmed No Known Home Medications 01/06/25 01/06/25 Allergies Allergy/AdvReac Type Severity Reaction Status Date / Time No Known Drug Allergies Allergy Verified 01/10/25 21:00 Opioid HPI Opioid Management Most Recent Pain and Opioid Data: Last Pain Scale 10 Today, 21:10 Last MAR Pain Assessment Today, 21:10 Review of Systems ROS Status of ROS 10 or more systems reviewed and unremarkable except as noted in history and below PFSH PFS Social History Smoking status: Never smoker Little interest or pleasure in doing things: not at all Feeling down, depressed, or hopeless: not at all Exam Narrative Exam Narrative: Vital signs and Nursing Notes reviewed: Patient is afebrile, mildly tachycardic with a pulse of 103 blood pressure is elevated at 153/88 General: Awake, alert, oriented, uncomfortable appearing obese male, no respiratory distress no acute distress HEENT: Normocephalic atraumatic, mucous membranes are moist and pink, eyes are clear, normal conjunctiva, vision is grossly intact Neck: Supple, no meningeal signs, no anterior or posterior cervical lymphadenopathy Chest: Lungs are clear to auscultation with good air entry, there is no wheezing rhonchi or rales appreciated no accessory muscle use, patient is speaking in complete sentences-no chest wall tenderness to palpation CVS: Regular rate and rhythm S1-S2, tachycardic at triage with a pulse of 103 no murmurs rubs or gallops, pulses are brisk and equal bilaterally ABD: Soft, nondistended, nontender, no rebound guarding or rigidity, bowel sounds are normal, no pulsatile masses appreciated Extremities: Mild swelling and tenderness to the right foot and lateral malleolus. Dorsalis pedis and posterior tibialis pulses are brisk and equal. Foot is warm and sensate. There are no palpable cords in the posterior calf appreciated, there is a palpable abnormality at the mid to upper calf consistent with a gastrocnemius tear Skin: Normal in appearance without rash,pallor, petechiae or purpura Neuro: No focal deficits Constitutional Vital Signs, click to edit/add: Last Vital Signs Temp 98.8 F 01/10/25 20:52 Pulse 103 H 01/10/25 20:52 Resp 18 01/10/25 20:52 BP 152/88 H 01/10/25 20:52 Pulse Ox 96 01/10/25 20:52 O2 Del Method Room Air 01/10/25 20:52 Course Vital Signs Vital signs: Vital Signs Temperature 98.8 F 01/10/25 20:52 Pulse Rate 103 H 01/10/25 20:52 Respiratory Rate 18 01/10/25 20:52 Blood Pressure 152/88 H 01/10/25 20:52 Pulse Oximetry 96 01/10/25 20:52 Oxygen Delivery Method Room Air 01/10/25 20:52 Temperature 98.8 F 01/10/25 20:52 Pulse Rate 103 H 01/10/25 20:52 Respiratory Rate 18 01/10/25 20:52 Blood Pressure 152/88 H 01/10/25 20:52 Pulse Oximetry 96 01/10/25 20:52 Oxygen Delivery Method Room Air 01/10/25 20:52 MDM - Extremity Injury (Lower) MDM Narrative Medical decision making narrative: This 39-year-old male who was seen in this emergency department on January 06 for a gastrocnemius tear and followed up with orthopedics, Dr. Zafar, presents for evaluation of pain in the right foot and ankle area. He has not had any injury to this area. He is awaiting insurance approval for an MRI of the right lower extremity in order to have further Treatment: For the injury. He denies any chest pain or shortness of breath. His foot is warm and sensate. Pulses are brisk and equal. He does have a palpable deformity in the posterior calf area. An ultrasound was ordered to rule out DVT which is negative for DVT but does show a fluid collection consistent with a muscle tear. X-ray of the foot and ankle shows some calcaneal spurring but no sign of fracture dislocation or other notable abnormality. He had been taking Tylenol and Motrin without significant improvement in his pain. He was given a dose of Percocet in the emergency department with mild clinical improvement but is still having a moderate amount of pain. He will be given a dose of IM Dilaudid prior to discharge and will be given a home pack of Percocet and Zofran. I did review his OARRS report which is negative for any activity. He will be discharged home with a prescription for Percocet, Zofran and Colace. He was encouraged to continue wearing his boot and following up closely with the insurance company for approval for the MRI. Discharge Plan Discharge Chief Complaint: Extremity Injury, Lower Clinical Impression: Gastrocnemius muscle tear, Foot and ankle pain Patient Disposition: Home, Self-Care Time of Disposition Decision: 22:14 Condition: Good Prescriptions / Home Meds: No Action No Known Home Medications Print Language: Portuguese Instructions: Arthralgia (ED) Additional Instructions: Call [facility] tomorrow for an update on your MRI. Continue limited weightbearing and use of the leg boot. Use pain medication and ice as needed. Referrals: Physician,Non-Staff, MD [Primary Care Provider] - 1 week
[2025-01-10] MEDS: OXYCODONE HCL/ACETAMINOPHEN 5MG/325MG 2 TAB PO (22:30)
[2025-01-10] MEDS: HYDROMORPHONE HCL 1 MG/ML CARTRIDGE IM (22:31)
== END 2025-01-10 22:43 | disposition home or self-care (01) ==
PROVIDERS: Emergency Provider Emergency Medicine
DX: M25.571 Pain in right ankle and joints of right foot (principal); M79.671 Pain in right foot; M77.31 Calcaneal spur, right foot; S86.811D Strain of other muscle(s) and tendon(s) at lower leg level, right leg, subsequent encounter; X50.0XXD Overexertion from strenuous movement or load, subsequent encounter
CPT/HCPCS: 73600; 73630; 93971; 96372; 99285; J1171; Q0162